=== PATIENT | female | born 1960 | race African-American/Black ===

== ENCOUNTER 2017-11-15 07:49 | Day surgery (SDC) | payer OTHER ==
[2017-11-14 17:48] VITALS: BMI 29.5
[2017-11-15 08:28] LABS: Mean Corpuscular HGB CONC 32.4 g/dL (32.0-36.0); Mean Corpuscular Hemoglobin 29.6 pg (27.0-31.0); Mean Corpuscular Volume 91.6 fL (78.0-98.0); Mean Platelet Volume 7.2 fL (7.4-10.4); Platelet Count 241 thou/uL (130-400); RBC Distribution Width 12.3 % (11.5-14.5); Red Blood Cell (RBC) Count 4.37 mill/uL (4.20-5.40); White Blood Cell (WBC) Count 4.8 thou/uL (4.8-10.8)
[2017-11-15 08:46] LABS: ALT (SGPT) 12 U/L (8-55); AST (SGOT) 18 U/L (5-34); Albumin 4.2 g/dL (3.5-5.0); Alkaline Phosphatase 97 U/L (40-150); Anion Gap 12 mmol/L (10-20); BUN (Urea Nitrogen) 18 mg/dL (9.8-20.1); Bilirubin, Total 0.3 mg/dL (0.2-1.2); Calc. Creatinine Clearance 94 mL/min (70-130); Calcium 9.7 mg/dL (7.8-10.44); Carbon Dioxide 27 mmol/L (22-29); Chloride 107 mmol/L (98-107); Estimated GFR-MDRD 89; Globulin 3.1 g/dL (2.4-3.5); Glucose 84 mg/dL (70-105); Potassium 4.2 mmol/L (3.5-5.1); Protein, Total 7.3 g/dL (6.0-8.3); Sodium 142 mmol/L (136-145)
[2017-11-15] MEDS ORDERED: Fentanyl 100 MCG/2 ML VIAL ONE (09:00)
[2017-11-15] MEDS ORDERED: Bupivacaine HCl 0.5%/Epinephrine 1:200,000/PF 30 ml Vial ONE (09:42)
--- NOTE | 2017-11-15 09:53 | RAD ---
TWO VIEW CHEST SERIES: Indication: Pre procedure evaluation. FINDINGS: The lungs are clear. There is no free air beneath the hemidiaphragms. Cardiac silhouette is within no rmal limits of size. IMPRESSION: No focal consolidation. POS: DARSHAN
--- NOTE | 2017-11-15 12:29 | EKG ---
Test Reason : PREOP Blood Pressure : / mmHG Vent. Rate : 066 BPM Atrial Rate : 066 BPM P-R Int : 148 ms QRS Dur : 082 ms QT Int : 392 ms P-R-T Axes : 052 -07 007 degrees QTc Int : 410 ms Normal sinus rhythm Normal ECG No previous ECGs available Confirmed by DR. Raina CISSE MD ([id number]) on 11/15/2017 12:29:03 PM Referred By: JOANN Confirmed By:DR. Raina CISSE MD
[2017-11-15] MEDS ORDERED: PHENYLEPHRINE-NS 100 MCG/ML 10 ML SYRINGE ONE (13:25)
[2017-11-15] MEDS ORDERED: ePHEDrine/0.9% NaCl/PF SYRINGE 50 mg/10 ml ONE (13:25)
[2017-11-15] MEDS ORDERED: Lidocaine 1% PF 5 ML VIAL ONE (13:25)
[2017-11-15] MEDS ORDERED: Dexamethasone 20 MG/5 ML VIAL ONE (13:25)
[2017-11-15] MEDS ORDERED: Ketorolac Tromethamine 30 MG/ML VIAL ONE (13:25)
[2017-11-15] MEDS ORDERED: Metoclopramide HCl 10 MG/2 ML VIAL ONE (13:25)
[2017-11-15] MEDS ORDERED: Ondansetron HCl/PF 4 MG/2 ML Vial ONE (13:25)
[2017-11-15] MEDS ORDERED: PROPOFOL 200 MG/20 ML VIAL ONE (13:25)
--- NOTE | 2017-11-16 00:10 | OP ---
DATE OF OPERATION: 11/15/2017 PREOPERATIVE DIAGNOSIS: Postmenopausal uterine bleeding with abnormal ultrasound and stenotic cervix . POSTOPERATIVE DIAGNOSES: 1. Postmenopausal uterine bleeding with abnormal ultrasound and stenotic cervix. 2. Small intrauterine masses consistent with uterine myoma, pathology pending and cervical stenosis. SURGEON: Won Rojas M.D. ANESTHESIA: General endotracheal. PROCEDURE: Hysteroscopy, dilation and curretage and TRUCLEAR polypectomy. OPERATIVE COMPLICATIONS: None. BLOOD LOSS: Approximately 25-50 mL and fluid deficit was approximately 125 mL PROCEDURE IN DETAIL: The patient was taken to the operating room where she was given general anesthe tic. She was prepped and draped and placed in lithotomy position. The bladder had been drained with in and out catheter and the cervix was grasped with a single tooth tenaculum with some difficulty as it was flushed at the vaginal wall. The cervix was dilated systema tically with dilators up to #16. The TRUCLEAR hysteroscope was inserted and the pathology visualized , photographed and then the TRUCLEAR morcellator was inserted through this small hysteroscope. Becau se of the density of the tissue, the morselization was discontinued after about 30 minutes, which is much longer than usual and the Pedro stone grasping forceps and a curette was used to remove the la rger of the masses at the apex of the uterus, which was the fragment that was brought out was at leas t a centimeter in diameter, but the whole mass was closed with a 2 cm initially. The smaller mass wa s about 0.5 x 1 cm at most and it was morcellated with the TRUCLEAR device. Total surgical time was probably 45 minutes which is about twice as long one of these normally takes. The surgery was not complicated. She is not bleeding, significantly discontinuation although silver nitrate was used for the tenaculum site. She was taken to the recovery room having tolerated the procedure and anesthesia well.
--- NOTE | 2017-11-16 04:58 | DIS ---
REASON FOR ADMISSION: Postmenopausal uterine bleeding; and hysteroscopy, D&C, polypectomy. HOSPITAL COURSE: Basically, the patient came in due to her laboratory on the morning of her surgery on 11/15/2017. She had no new complaints. Her bleeding had already stopped. She had no other major medical problems and she was otherwise healthy 57-year-old postmenopausal woman, who had not had a p eriod for about 7-10 years. Endometrial biopsy had not been performed in the office because she had cervical stenosis. Under general endotracheal anesthesia, she underwent a hysteroscopy D&C with both standard and TruCle ar excision of 2 masses in the uterine cavity that appeared ultimately to be uterine fibroids based o n their density. The lower segment mass was only partially excised as it was in the lower uterine se gment near the cervical, not far from the cervical os, and it was not bleeding. Tissue was submitted. Her preoperative laboratory, EKG, and chest x-ray were all unremarkable. IMPRESSION AND FINAL DIAGNOSES: Benign causation to postmenopausal bleeding, but pathology is pendin g. PLAN: Plan is to discharge the patient home with Advil for pain. She did get Toradol in the hospita beforehand. She was ready for discharge approximately 2 hours later and she will follow up in the office in 2 weeks. She got warning instructions specifically regarding emergency contact etc., and w arning signs to look for.
== END 2017-11-15 12:55 | disposition home or self-care (01) ==
LOC: SDC 07:49
PROVIDERS: ATTEND Obstetrics & Gynecology
PROC: 0UB98ZX Excision of Uterus, Via Natural or Artificial Opening Endoscopic, Diagnostic (ICD-10-PCS; principal; 2017-11-15)
PROC: 0UDB8ZX Extraction of Endometrium, Via Natural or Artificial Opening Endoscopic, Diagnostic (ICD-10-PCS; principal; 2017-11-15)
DX: D25.9 Leiomyoma of uterus, unspecified (principal); Z79.899 Other long term (current) drug therapy
CPT/HCPCS: 36415; 71046; 80053; 85027; 86850; 86900; 86901; 88305; 93005; 93010; J0131; J0670; J1100; J1885; J2001; J2405; J2704; J2765; J3010

== ENCOUNTER 2018-10-12 08:46 | Outpatient (CLI) | payer OTHER ==
--- NOTE | 2018-10-12 10:34 | MRI ---
MRI LUMBAR SPINE WITHOUT CONTRAST: HISTORY: A 58-year-old female with lumbago and left-sided sciatica. The patient complains of right hip, right leg, and bilateral feet pain sometimes on the left and worse on the right with tingling over a year. FINDINGS: The vertebral body heights are maintained. Mild heterogeneity is seen in the bone marrow signal. Co nus medullaris ends at the L1-2 level. There is grade I anterolisthesis of L1 over L2 vertebral bodi es. Facet hypertrophic change is seen bilaterally at L3-4, L4-5, and L5-S1 levels. Disk desiccation is noted at multiple levels in the lumbar spine. There is a mild broad-based disk bulge at L3-4 level with flattening of the anterior thecal sac. No significant central or neural foraminal stenosis is seen. At L4-5 level, there is a broad-based disk bulge with severe central canal stenosis and bilateral lat eral recess stenosis. There is moderate bilateral neural foraminal stenosis. At L5-S1 level, there is a broad-based disk bulge with right-sided dominance causing severe right preston ral foraminal stenosis and right lateral recess stenosis and impingement of the nerve roots in the ri ght lateral recess and thecal sac. There is also probable impingement of the nerve root in the left lateral recess at this level. Severe central canal stenosis is seen. IMPRESSION: 1. Lumbar spondylosis. 2. Grade I anterolisthesis of L4 over L5 with severe central canal and moderate bilateral neural for aminal stenosis. 3. Severe central canal stenosis and right neural foraminal stenosis at L5-S1 level. POS: OFF
== END 2018-10-12 08:47 | disposition home or self-care (01) ==
LOC: BICMRI 08:46
PROVIDERS: ATTEND Psychiatry & Neurology Neurology
DX: M54.42 Lumbago with sciatica, left side (principal); M47.816 Spondylosis without myelopathy or radiculopathy, lumbar region; M43.16 Spondylolisthesis, lumbar region; M48.061 Spinal stenosis, lumbar region without neurogenic claudication; M48.07 Spinal stenosis, lumbosacral region
CPT/HCPCS: 72148

== ENCOUNTER 2020-03-27 15:17 | Outpatient (CLI) | payer OTHER ==
--- NOTE | 2020-03-27 15:59 | MMO ---
Bilateral MAMMO Bilat Screen [facility]. CLINICAL HISTORY: Patient is 60 years old and is seen for screening. The patient has no family history of breast cancer. The patient has no personal history of cancer. VIEWS: The views performed were: bilateral craniocaudal with tomosynthesis and bilateral mediolateral oblique with tomosynthesis. FILMS COMPARED: The present examination has been compared to prior imaging studies performed at [facility] on 09/10/2010 and 12/25/2015. This study has been interpreted with the assistance of computer-aided detection. MAMMOGRAM FINDINGS: There are scattered fibroglandular densities. There are no suspicious masses, suspicious calcifications, or new areas of architectural distortion. IMPRESSION: THERE IS NO MAMMOGRAPHIC EVIDENCE OF MALIGNANCY. A ROUTINE FOLLOW-UP MAMMOGRAM IN 1 YEAR IS RECOMMENDED. THE RESULTS OF THIS EXAM WERE SENT TO THE PATIENT. ACR BI-RADS Category 1 - Negative MAMMOGRAPHY NOTE: 1. A negative mammogram report should not delay a biopsy if a dominant of clinically suspicious mass is present. 2. Approximately 10% to 15% of breast cancers are not detected by mammography. 3. Adenosis and dense breasts may obscure an underlying neoplasm. Reported by: ARNIE BEEBE MD Electonically Signed: [id number]
== END 2020-03-27 15:18 | disposition home or self-care (01) ==
LOC: BICMAMMO 15:17
PROVIDERS: ATTEND Family Medicine
DX: Z12.31 Encounter for screening mammogram for malignant neoplasm of breast (principal)
CPT/HCPCS: 77063; 77067

== ENCOUNTER 2020-05-06 13:54 | Outpatient (CLI) | payer OTHER ==
--- NOTE | 2020-05-06 14:54 | BD ---
DEXA BONE DENSITY STUDY: HISTORY: Postmenopausal. FINDINGS: Lumbar Spine: BMD (g/cm2) L1 0.811 T-Score: -1.6 L2 0.798 T-Score: -2.1 L3 0.833 T-Score: -2.3 L4 0.981 T-Score: -0.7 L1-L4 0.863 T-Score: -1.7 Femoral Neck: 0.728 T-Score: -1.1 Total Femur: 0.832 T-Score: -0.9 Impression: 1. Osteopenia of the lumbar spine and left femoral neck. 2. Ten-year fracture risk for a major osteoporotic fracture is 3.2% and of a hip fracture 0.2%. The se fracture probabilities are calculated for an untreated patient. POS: DEBORAH
== END 2020-05-06 13:55 | disposition home or self-care (01) ==
LOC: BICMAMMO 13:54
PROVIDERS: ATTEND Physician Assistant
DX: Z13.820 Encounter for screening for osteoporosis (principal); M85.89 Other specified disorders of bone density and structure, multiple sites
CPT/HCPCS: 77080

== ENCOUNTER 2020-08-12 13:24 | Outpatient (CLI) | payer OTHER | END 2020-08-12 13:25 | disposition home or self-care (01) | LOC: BICRAD 13:24 | PROVIDERS: ATTEND Specialist | DX: M17.11 Unilateral primary osteoarthritis, right knee (principal); M25.559 Pain in unspecified hip; M16.0 Bilateral primary osteoarthritis of hip; M53.3 Sacrococcygeal disorders, not elsewhere classified | CPT/HCPCS: 73522 ==

== ENCOUNTER 2023-04-26 07:53 | Outpatient (CLI) | payer OTHER | END 2023-04-26 07:54 | disposition home or self-care (01) | LOC: BICMAMMO 07:53 | PROVIDERS: ATTEND Family Medicine | DX: Z12.31 Encounter for screening mammogram for malignant neoplasm of breast (principal) | CPT/HCPCS: 77063; 77067 ==

== ENCOUNTER 2024-06-07 08:41 | Outpatient (CLI) | payer OTHER | END 2024-06-07 08:42 | disposition home or self-care (01) | LOC: BICMAMMO 08:41 | PROVIDERS: ATTEND Family Medicine | DX: Z12.31 Encounter for screening mammogram for malignant neoplasm of breast (principal) | CPT/HCPCS: 77063; 77067 ==